=== PATIENT | female | born 1995 ===

== ENCOUNTER → 2023-06-21 | Outpatient (CLI) | payer OTHER ==
[2023-06-21 09:53] LABS: Basophils # (auto) 0 10 ^3/uL (0-0.2); Basophils % (auto) 0.4 % (0.0-2.0); Eosinophils # (auto) 0.1 10 ^3/uL (0-0.8); Hematocrit 40.6 % (36.0-46.0); Hemoglobin 13.7 g/dL (12.2-16.2); Lymphocytes # (auto) 3.5 10 ^3/uL (0.4-5.4); Lymphocytes % (auto) 46.4 % (10.0-50.0); Mean Corpuscular Hemoglobin 29.6 pg (28.0-32.0); Mean Corpuscular Hgb Conc. 33.8 g/dL (32.0-36.0); Mean Corpuscular Volume 87.8 fL (80.0-100.0); Monocytes # (auto) 0.3 10 ^3/uL (0-1.3); Monocytes % (auto) 4.3 % (0.0-12.0); Neutrophils # (auto) 3.6 10 ^3/uL (1.6-8.6); Neutrophils % (auto) 47.9 % (37.0-80.0); Red Blood Cells 4.62 10^6/uL (4.0-5.20); Red Cell Distribution Width 14.3 % (11.8-14.3); White Blood Cell 7.6 10^3/uL (4.4-10.8)
[2023-06-21 10:26] LABS: Creatinine, Urine 150.93 mg/dL (30.0-125.0)
[2023-06-21 10:27] LABS: Thyroid Stimulating Hormone 1.88 uIU/mL (0.55-4.78)
[2023-06-21 10:28] LABS: Alanine Aminotransferase 15 U/L (7-40); Anion Gap 6.8 (5-15); Calcium 9.2 mg/dL (8.5-10.1); Carbon Dioxide 25.2 mmol/L (20-30); Chloride 104 mmol/L (98-107); Potassium 4.1 mmol/L (3.5-5.1); Sodium 136 mmol/L (136-145)
[2023-06-21 10:29] LABS: Aspartate Aminotransferase 9 U/L (13-40); BUN/Creatinine Ratio 12.5 (10.0-20.0); Beta HCG, Quantitative < 0.0 mIU/mL (1.5-4.2); Blood Urea Nitrogen 9 mg/dL (9-23); Glucose 89 mg/dL (74-106); Triglycerides 112 mg/dL (< 150)
[2023-06-21 10:30] LABS: LDL Cholesterol 76 mg/dL (< 100)
[2023-06-21 10:31] LABS: Albumin 4.4 g/dL (3.2-4.8); Bilirubin, Total 0.4 mg/dL (0.2-1.0); Cholesterol 124 mg/dL (< 200); HDL Cholesterol 35 mg/dL (40-59); Total Protein 7.5 g/dL (5.7-8.2)
[2023-06-21 10:45] LABS: Alkaline Phosphatase 62 U/L (46-116)
== END | disposition home or self-care (01) ==
LOC: LAB 08:58
DX: R73.03 Prediabetes (principal); E66.01 Morbid (severe) obesity due to excess calories; N92.6 Irregular menstruation, unspecified; Z20.2 Contact with and (suspected) exposure to infections with a predominantly sexual mode of transmission
CPT/HCPCS: 36415; 80053; 80061; 82043; 82306; 82570; 83036; 84439; 84443; 84702; 85025; 86592; 86703; 86705; 86709; 86803; 87340

== ENCOUNTER → 2023-07-12 | Outpatient (CLI) | payer OTHER ==
[2023-07-12 10:53] LABS: Alanine Aminotransferase 15 U/L (7-40); Albumin 4.5 g/dL (3.2-4.8); Alkaline Phosphatase 63 U/L (46-116); Aspartate Aminotransferase 12 U/L (13-40); BUN/Creatinine Ratio 11.8 (10.0-20.0); Blood Urea Nitrogen 9 mg/dL (9-23); Calcium 9.5 mg/dL (8.5-10.1); Carbon Dioxide 28 mmol/L (20-30); Glucose 96 mg/dL (74-106)
[2023-07-12 10:55] LABS: Bilirubin, Total 0.4 mg/dL (0.2-1.0); Total Protein 7.8 g/dL (5.7-8.2)
[2023-07-12 10:59] LABS: Follicle Stimulating Hormone 8.79 IU/L (SEE BELOW); Leuteinizing Hormone 7.1 IU/L
[2023-07-12 11:00] LABS: Prolactin 6.45 ng/mL (2.8-29.2)
[2023-07-12 11:11] LABS: Basophils # (auto) 0 10 ^3/uL (0-0.2); Basophils % (auto) 0.5 % (0.0-2.0); Eosinophils # (auto) 0.1 10 ^3/uL (0-0.8); Eosinophils % (auto) 1.1 % (0.0-7.0); Hematocrit 41.4 % (36.0-46.0); Lymphocytes # (auto) 3.5 10 ^3/uL (0.4-5.4); Lymphocytes % (auto) 44.7 % (10.0-50.0); Mean Corpuscular Hemoglobin 29.9 pg (28.0-32.0); Mean Corpuscular Hgb Conc. 33.9 g/dL (32.0-36.0); Mean Corpuscular Volume 88.2 fL (80.0-100.0); Monocytes # (auto) 0.4 10 ^3/uL (0-1.3); Monocytes % (auto) 4.7 % (0.0-12.0); Neutrophils # (auto) 3.9 10 ^3/uL (1.6-8.6); Nucleated Red Blood Cells % 0.1 %; Red Cell Distribution Width 14.4 % (11.8-14.3); White Blood Cell 7.9 10^3/uL (4.4-10.8)
[2023-07-12 11:36] LABS: Anion Gap 6 (5-15); Chloride 105 mmol/L (98-107); Potassium 4.3 mmol/L (3.5-5.1); Sodium 139 mmol/L (136-145)
[2023-07-13 06:06] LABS: Insulin 45.7 uIU/mL (2.6-24.9)
[2023-07-13 08:06] LABS: Estradiol 44.9 pg/mL (.)
== END | disposition home or self-care (01) ==
LOC: LAB 09:55
PROVIDERS: ATTEND Obstetrics & Gynecology
DX: E28.2 Polycystic ovarian syndrome (principal)
CPT/HCPCS: 36415; 80053; 81025; 82306; 82626; 82670; 83001; 83002; 83036; 83525; 84144; 84146; 84403; 85025

== ENCOUNTER 2024-01-08 18:43 | Emergency (ER) | payer BC, OTHER ==
[~2024-01-08] VITALS: Ht 170.2 cm; Wt 169.0 kg
[2024-01-08] MEDS ORDERED: ACETAMINOPHEN 500 MG TAB PO ONE (20:15)
[2024-01-08] MEDS ORDERED: IBUPROFEN 800 MG TAB PO ONE (20:15)
[2024-01-08] MEDS ORDERED: SODIUM CHLORIDE 0.9% 1,000 ML IV ONE (20:15)
[2024-01-08] MEDS ORDERED: ONDANSETRON ODT 4 MG TAB PO ONE (20:30)
[2024-01-08 20:38] LABS: Rapid Influenza A Negative (Negative); Rapid Influenza B Negative (Negative)
[2024-01-08 20:41] LABS: COVID19 ANTIGEN SOFIA FIA POSITIVE (NEGATIVE)
== END 2024-01-09 01:28 | disposition left against medical advice (07) ==
LOC: ER 18:43
DX: O98.512 Other viral diseases complicating pregnancy, second trimester (principal); U07.1 COVID-19; Z3A.17 17 weeks gestation of pregnancy; Z53.21 Procedure and treatment not carried out due to patient leaving prior to being seen by health care provider
CPT/HCPCS: 36415; 87426; 87804